=== PATIENT | male | born 1990 | race Two or more races ===

== ENCOUNTER 2019-07-06 23:23 | Emergency (ER) | payer OTHER ==
[~2019-07-06] VITALS: Ht 170.2 cm; Wt 99.8 kg
[2019-07-07] MEDS ORDERED: KETO10TA2 PO (03:12)
== END 2019-07-07 03:35 ==
LOC: ER 23:23
DX: S00.83XA Contusion of other part of head, initial encounter (principal); W18.09XA Striking against other object with subsequent fall, initial encounter; Y93.89 Activity, other specified; Y92.69 Other specified industrial and construction area as the place of occurrence of the external cause; Y99.8 Other external cause status